=== PATIENT | male | born 1950 | race Caucasian/White ===

== ENCOUNTER 2017-07-18 16:12 | Inpatient (IN) | payer OTHER ==
[~2017-07-18] VITALS: Ht 190.5 cm; Wt 95.3 kg
--- NOTE | ~2017-07-18 | P ---
[facility] [place] [address] PROCEDURE REPORT Name: SHEILA KAPOOR Room #: 210-P [facility] IN M.R.#: [id number] Admission: 07/18/17 Attend Phys: Emanuel Matthews MD Discharge: 07/26/17 Date of : 48 Report #: [id number] THIS REPORT FOR: //name// CC: Emanuel Chavez DATE OF SERVICE: 07/22/2017 PROCEDURE: Upgrade to a biventricular pacemaker. PREOPERATIVE DIAGNOSES: 1. Acute systolic heart failure. 2. Low cardiac output heart failure. 3. Complete heart block. 4. Pacemaker induced cardiomyopathy. HISTORY OF PRESENT ILLNESS: with newly diagnosed systolic heart failure, admitted to the hospital with acute on chronic LV systolic heart failure, which is secondary to chronic right ventricular pacing. He has class 3 heart failure symptoms with a low ejection fraction and has 100% RV pacing, therefore he requires upgrade to a biventricular pacemaker. ANESTHESIA: The patient underwent MAC anesthesia with no anesthesia related complications. PROCEDURE: The patient underwent informed consent where we discussed the details of the procedure including the risks, which include, but not limited to bleeding, infection, vascular damage, cardiac perforation and pneumothorax. He understood these risks and is willing to proceed. As such, the patient was brought to the EP laboratory in a fasting and sedated state and prepped and draped in sterile fashion. The patient received IV antibiotics in the form of vancomycin prior to initiation of the procedure. The patient underwent a venogram, which showed that there could potentially be an occlusion of the left axillary vein. Next, I injected lidocaine at the prior incision site, an incision was made and the chronic pocket was entered. The pacemaker was removed from the pocket. I then attempted to obtain access to the left axillary vein. When I would try to advance my guidewire, it would meet with an occlusion. I therefore switched to a Noy wire and after approximately 10-15 minutes, I was able to find a small channel through the stenosis that I was able to advance the wire through. As such, I then used a 6-Maori dilator and dilated through the stenosis. I then upsized to a 9-Maori short sheath and was able to advance my guidewire down into the right atrium. I then obtained a guide sheath for the coronary sinus and was able to cannulate the coronary sinus quickly and he had a nice posterolateral branch where I was able to deliver a quadripolar lead. This had good pacing and sensing [facility] [address] [place] [address] PROCEDURE REPORT Name: SHEILA KAPOOR Room #: 210-P [facility] IN ..#: [id number] Admission: 07/18/17 Attend Phys: Emanuel Matthews MD Discharge: 07/26/17 Date of : 48 Report #: [id number] thresholds. The lead was sutured to the prepectoral fascia and the new device was connected. The preexisting leads were tested and found to be functioning normally and these were connected to the new [employer] biventricular pacemaker. The pocket was then irrigated with vancomycin solution and then the pocket was closed in 3 layers using 2-0 for the deep layer, 3-0 for the mid layer and 4-0 for the subcuticular layer. Surgical glue was placed to the outer skin layer. The patient awoke neurologically and hemodynamically intact with no complications and no significant bleeding. The explanted pacemaker was a Medtronic model #RVDR01, serial #[id number]. The newly implanted biventricular pacemaker was a [employer] model #ZZ8451, serial #[id number]. The RA lead was a Medtronic model #5076, serial #[id number] with a P-wave of 1.2 millivolts, pacing impedance of 410 ohms and a pacing threshold of 1.25 volts at 0.6 milliseconds. The RV lead was a Medtronic model #5076, serial #[id number]. This lead demonstrated no underlying R waves, pacing impedance of 460 ohms and pacing threshold of 1 volt at 0.5 milliseconds. The LV lead was a [employer] model #1458Q, 86 cm, serial #[id number] with a pacing impedance of 730 ohms and a pacing threshold of 1.25 volts at 0.5 milliseconds. I paced the LV lead from a basal configuration and I optimized the LV offset. The initial QRS duration was very wide at 290 milliseconds and post-biventricular pacing, we had narrowed it down to 190 milliseconds. The device was placed, programmed to the DDDR 60-130 mode. CONCLUSIONS: 1. Successful upgrade to a biventricular pacemaker. 2. Satisfactory atrial, right ventricular and left ventricular pacing thresholds. <ELECTRONICALLY SIGNED> By: Anthony Herr MD 08/02/17 1512 1100 1303 Anthony Herr MD /nt
--- NOTE | ~2017-07-18 | HC ---
[facility] [place] [address] CONSULTATION Name: SHEILA KAPOOR Room #: 210-P [facility] IN M.R.#: [id number] Admission: 07/18/17 Attend Phys: Emanuel Matthews MD Discharge: 07/26/17 Date of : 48 Report #: [id number] THIS REPORT FOR: //name// CC: Emanuel Chavez ELECTROPHYSIOLOGY CONSULTATION REASON FOR CONSULTATION: Evaluate for Bi-V upgrade. HISTORY OF PRESENT ILLNESS: The patient is a 67-year-old with a history of complete heart block, status post pacemaker implantation with a Medtronic device. He paces the ventricle 100% of the time. Recently, he started developing heart failure symptoms with EF in the 20% range. He presented to the Emergency Room with increased fatigue, shortness of breath and confusion. He was seen by Dr. Apple who has asked me to evaluate him for upgrade to a Bi-V. The patient denies any chest pain. He does have exertional dyspnea with minimal to moderate activities. He denies PND or orthopnea. He denies presyncope or syncope. PAST MEDICAL HISTORY: 1. Nonischemic cardiomyopathy. 2. Heart block with chronic RV pacing with Medtronic device. SOCIAL HISTORY: He does not smoke. FAMILY HISTORY: Noncontributory. ALLERGIES: None. MEDICATIONS: Have been reviewed and he is on benazepril 20, carvedilol 3.125, Aldactone, torsemide and other noncardiac meds. REVIEW OF SYSTEMS: A 12-point review of systems was performed and was negative other than what I mentioned above. PHYSICAL EXAMINATION: VITAL SIGNS: Temperature is 36.4, pulse 102, respiration is 22, blood pressure 115/75, sats 100% on room air. GENERAL: He is in no acute distress. HEENT: Oropharynx is clear. NECK: Supple, with no thyromegaly. HEART: Regular rate and rhythm with a displaced PMI. He has a slightly elevated jugular venous pressure. LUNGS: Clear to auscultation bilaterally. ABDOMEN: Soft, nontender, nondistended. EXTREMITIES: Cool with faint pulses. There is no clubbing. There is no edema. [facility] [address] [place] [address] CONSULTATION Name: SHEILA KAPOOR Room #: [address] [place] [address] IN M.R.#: [id number] Admission: 07/18/17 Attend Phys: Emanuel Matthews MD Discharge: 07/26/17 Date of : 48 Report #: [id number] LABORATORY DATA: Creatinine is 1.5. TSH is 4, hemoglobin is 12, white count 6, platelets 259. INR is 1.1. ProBNP is elevated at 7100. CT of the head, no acute process. Chest x-ray shows cardiomegaly, no obvious pulmonary edema or infiltrates. ASSESSMENT AND PLAN: 1. Complete heart block. 2. Medtronic pacemaker. 3. Nonischemic cardiomyopathy. 4. Acute on chronic congestive heart failure with a decreased left ventricular systolic function. 5. Cardiomyopathy, likely secondary to chronic right ventricular pacing. In summary, the patient is a 67-year-old with a nonischemic cardiomyopathy secondary to chronic right ventricular pacing. Given his low ejection fraction and 100% RV pacing, I have recommended that we upgrade the patient to biventricular pacemaker. We discussed the details of the procedure including the risks, which include but not limited to bleeding, infection, vascular damage, cardiac perforation and pneumothorax. He understands these risks and is willing to proceed. We will plan on performing the procedure Saturday. I would make him n.p.o. after midnight on Saturday night. <ELECTRONICALLY SIGNED> By: Anthony Herr MD 07/26/17 1407 1408 1837 Anthony Herr MD /nt
--- NOTE | ~2017-07-18 | EKG ---
[place] [address] [facility] [facility] [place] [address] ELECTROCARDIOGRAM REPORT Name: SHEILA KAPOOR Room #: 210-P ADM IN M.R.#: [id number] Admission: 07/18/17 Attend Phys: Emanuel Mathtews MD Discharge: Date of : 48 Report #: [id number] THIS REPORT FOR: //name// [facility] ED Test Date: 2017-07-18 Test Time: 16:24:50 Pat Name: SHEILA KAPOOR Department: Room: 210 Gender: M Chief Warden: [facility] : 1950 Requested By: Jhon Miller Order Number: [id number] MD: Jose Alejandro Apple Measurements Intervals [place] Rate: 82 P: 65 ME: 29 QRS: -74 QRSD: 239 T: 104 QT: 541 QTc: 632 Interpretive Statements Ventricular-paced complexes No further analysis attempted due to paced rhythm Compared to ECG 11/15/2014 08:05:04 ventricular pacing is now present Electronically Signed On 07-19-2017 13:19:19 CDT by Jose Alejandro Apple [email or web address] <ELECTRONICALLY SIGNED> By: Jose Alejandro Apple MD, [facility] 07/19/17 1319 1624 1624 Jose Alejandro Apple MD, [facility] /EPI
--- NOTE | ~2017-07-18 | HC ---
[facility] [place] [address] CONSULTATION Name: SHEILA KAPOOR Room #: 210-P [facility] IN M.R.#: [id number] Admission: 07/18/17 Attend Phys: Emanuel Matthews MD Discharge: 07/26/17 Date of : 48 Report #: [id number] THIS REPORT FOR: //name// CC: Emanuel Kiser REASON FOR CONSULTATION: Shortness of breath. HISTORY OF PRESENT ILLNESS: The patient is a 67-year-old gentleman with history of hypertension, dyslipidemia and heart block with remote pacemaker implantation (2014). In late 2016, the patient noticed increasing shortness of breath and lower extremity edema. He has gained about 15 pounds over that same length of time. He has a history notable for asymptomatic ventricular ectopy. In 2008, he underwent a battery of tests including echocardiography, which demonstrated normal left ventricular systolic function and a nuclear stress study demonstrating no evidence of ischemia. Remote angiography in 2012 demonstrated essentially normal coronary vasculature and normal systolic function. Recent interrogation of his pacemaker demonstrates a Medtronic dual chamber device, ventricular pacing 96% of the time. His underlying rhythm is complete heart block. Then, subsequently developed a severe cardiomyopathy with an ejection fraction in the 20% range with phem-nu-weycinme mitral insufficiency. He was placed on diuretics, in addition to his usual heart failure protocol, and has had significant improvement in his lower extremity edema and exertional breathlessness, although this has been persistent. According to his family, he has also had intermittent confusion and some cognitive issues over the past couple of months. ALLERGIES: No known drug allergies. MEDICATIONS: Include Elavil 75 mg daily, atorvastatin 20 mg daily, benazepril 20 mg daily, carvedilol 3.125 mg twice daily, Prozac 20 mg 3 times a day, HydroDIURIL 25 mg daily, Namenda 10 mg twice daily, ReVia 50 mg, potassium 20 mEq daily, Seroquel 200 mg daily, Aldactone 25 mg daily, Flomax 0.4 mg daily, torsemide 40 mg daily. PAST MEDICAL HISTORY: Medical records have been reviewed and include history of dyslipidemia, hypertension, sleep apnea for which he uses CPAP, heart block with pacemaker implantation, left total knee replacement. SOCIAL HISTORY: He is a former smoker, works at the [employer]. FAMILY HISTORY: Unremarkable for premature coronary disease. REVIEW OF SYSTEMS: All systems negative except as that noted above. PHYSICAL EXAMINATION: GENERAL: Reveals a pleasant gentleman who is alert and in no distress. [address] [address] CONSULTATION Name: SHEILA KAPOOR Room #: [facility] [place] IN M.R.#: [id number] Admission: 07/18/17 Attend Phys: Emanuel Matthews MD Discharge: 07/26/17 Date of : 48 Report #: [id number] VITAL SIGNS: Blood pressure is 129/90, heart rate of 78 and regular. He is afebrile. HEENT: There are neither xanthelasma, subcutaneous xanthomata, oral mucosal or digital cyanosis or kyphoscoliosis present. CHEST: Clear to auscultation and percussion. CARDIAC: Regular rate and rhythm with normal S1, S2. ABDOMEN: Soft and nontender. EXTREMITIES: Without cyanosis, clubbing or edema. Radial pulses are 2+. NEUROLOGIC: He is alert with a nonfocal exam. LABORATORY DATA: EKG, sinus rhythm with ventricular pacing, left bundle-branch block morphology. Chest x-ray demonstrates cardiomegaly, normal pulmonary vasculature. Sodium 139, potassium 3.5, creatinine 1.5. ProBNP of 7000. Troponin negative. White count 6.6, hemoglobin 12, hematocrit 37, platelet count 259. IMPRESSION: 1. Tymbu-jm-eokybsj systolic heart failure; low output symptoms. 2. Acute kidney injury. 3. Dilated, nonischemic cardiomyopathy, probable pacing-induced cardiomyopathy. 4. Hypertension. 5. Sleep apnea, on CPAP. 6. Dyslipidemia. 7. History of heart block with remote dual chamber pacemaker implantation. RECOMMENDATIONS: 1. Gentle diuresis. 2. Continued use of usual heart failure medicines including carvedilol and TYRON inhibitor. 3. EP consultation for device upgrade to biventricular pacer defibrillator. These issues were discussed with the patient and his family. Thank you for asking me to participate in his care. <ELECTRONICALLY SIGNED> By: Jose Alejandro Apple MD, [facility] 07/29/17 0816 0805 1025 Jose Alejandro Apple MD, FACC /nt
[~2017-07-18 16:12] MED LIST: AMITRIPTYLINE H75 M1 PO; AMITRIPTYLINE100 MG PO; ASPIR 8181 MG PO; ATIVAN0.5 MG PO; BENAZEPRIL HCL20 MG PO; CENTRUM SILVER1 EAC2 PO; CIALIS10 MG PO; CRESTOR20 MG PO; FLUOXETINE HCL20 M1 PO; GEODON 20 MG PO; GEODON20 MG PO; HYDROCODONE-AP1 EAC6 PO; IBUPROFEN200 M1 PO; LIPITOR 20 MG T20 M1 PO; LOTREL 10-20 M1 EACH PO; MELATONIN3 MG PO; NORVASC10 MG PO; REVIA 50 MG TAB50 MG PO; TAMSULOSIN HCL0.4 M1 PO; TYLENOL325 MG PO; ZANTAC 150MG T150 MG PO; [UNRECOGNIZED DRUG - OTHER] PO
[2017-07-18 16:27] VITALS: BP 110/77
[2017-07-18] MEDS ORDERED: FLOMAX0.4 MG PO (16:57)
[2017-07-18] MEDS ORDERED: QUETIAPINE FUM200 M1 PO (16:58)
[2017-07-18] MEDS ORDERED: CARVEDILOL3.125 MG PO (17:01)
[2017-07-18] MEDS ORDERED: ALDACTONE25 MG PO (17:01)
[2017-07-18] MEDS ORDERED: AMBIEN 5 MG TABL5 M1 PO (17:02)
[2017-07-18] MEDS ORDERED: DEMADEX20 MG PO (17:02)
[2017-07-18] MEDS ORDERED: POTASSIUM20 PO (17:03)
[2017-07-18 17:04] LABS: ABSOLUTE NEUTROPHILS 5.2 thou/uL (1.4-8.2); BASOPHILS 0.6 % (0.0-2.0); EOSINOPHILS 2.9 % (0.0-3.0); HEMOGLOBIN 12.1 gm/dL (14.0-18.0); LYMPHOCYTES 11.9 % (24.0-44.0); MCH 29.7 pg (26.0-34.0); MCHC 32.8 g/dL (28.0-37.0); MCV 90.5 fL (80.0-100.0); PLATELET COUNT 259 thou/uL (150-400); POLYS 78.6 % (36.0-66.0); RBC 4.08 mil/uL (4.50-6.00); RDW 14.7 % (10.5-14.5); WBC 6.6 thou/uL (4.0-11.0)
[2017-07-18 17:14] LABS: CALCIUM 10.5 mg/dL (8.5-10.1); CREATININE 1.7 mg/dL (0.7-1.3)
[2017-07-18] MEDS ORDERED: IBUPROFEN 200200 M1 PO ×2 (17:18→17:19)
[2017-07-18 17:21] LABS: APTT 26.4 Seconds (24.5-32.8); INR 1.1; PROTIME 11.7 Seconds (9.3-11.4)
[2017-07-18 17:23] VITALS: BP 110/77
[2017-07-18 17:23] LABS: ALBUMIN 3.6 g/dL (3.4-5.0); TOTAL BILIRUBIN 1.4 mg/dL (<0.1-1.0); TOTAL PROTEIN 6.9 g/dL (6.4-8.2); TROPONIN-I 0.05 ng/mL (<0.06)
[2017-07-18 17:56] VITALS: BP 135/98
[2017-07-18 18:35] VITALS: BP 143/88
[2017-07-18 19:45] VITALS: BP 120/84
[2017-07-19 00:21] VITALS: BP 128/84
[2017-07-19 04:00] LABS: CALCIUM 10.1 mg/dL (8.5-10.1); CREATININE 1.5 mg/dL (0.7-1.3); POTASSIUM 3.5 mmol/L (3.5-5.1)
[2017-07-19 04:45] VITALS: BP 129/97
[2017-07-19 08:10] VITALS: BP 138/93
[2017-07-19 11:48] VITALS: BP 115/75
[2017-07-19 16:01] VITALS: BP 104/75
[2017-07-19 19:48] VITALS: BP 108/75
[2017-07-20 03:54] VITALS: BP 124/72
[2017-07-20 04:34] LABS: CALCIUM 9.9 mg/dL (8.5-10.1); CREATININE 1.9 mg/dL (0.7-1.3); POTASSIUM 4.3 mmol/L (3.5-5.1)
[2017-07-20 04:35] LABS: ABSOLUTE NEUTROPHILS 4.4 thou/uL (1.4-8.2); BASOPHILS 0.6 % (0.0-2.0); EOSINOPHILS 3.4 % (0.0-3.0); HEMATOCRIT 33.4 % (42.0-52.0); HEMOGLOBIN 11.2 gm/dL (14.0-18.0); LYMPHOCYTES 21.5 % (24.0-44.0); MCH 30.2 pg (26.0-34.0); MCHC 33.6 g/dL (28.0-37.0); MCV 89.8 fL (80.0-100.0); MONOCYTES 7.6 % (1.0-8.0); PLATELET COUNT 213 thou/uL (150-400); POLYS 66.9 % (36.0-66.0); RBC 3.72 mil/uL (4.50-6.00); RDW 14.3 % (10.5-14.5); WBC 6.6 thou/uL (4.0-11.0)
[2017-07-20 11:51] VITALS: BP 115/86
[2017-07-20 15:12] VITALS: BP 109/79
[2017-07-20 20:10] VITALS: BP 119/83
[2017-07-21 04:18] VITALS: BP 106/77
[2017-07-21 08:37] VITALS: BP 127/94
[2017-07-21 11:11] LABS: CALCIUM 10.2 mg/dL (8.5-10.1); POTASSIUM 4.4 mmol/L (3.5-5.1)
[2017-07-21 11:45] VITALS: BP 127/94
[2017-07-21 12:55] VITALS: BP 103/63
[2017-07-21 13:04] VITALS: BP 116/87
[2017-07-21 20:03] VITALS: BP 137/92
[2017-07-22 03:21] VITALS: BP 123/84
[2017-07-22 04:32] LABS: CALCIUM 9.9 mg/dL (8.5-10.1); POTASSIUM 4.5 mmol/L (3.5-5.1)
[2017-07-22 06:51] VITALS: BP 107/79
[2017-07-22 19:01] VITALS: BP 141/85
[2017-07-23 03:18] VITALS: BP 113/77
[2017-07-23 06:33] LABS: CALCIUM 9.6 mg/dL (8.5-10.1); CREATININE 1.5 mg/dL (0.7-1.3); POTASSIUM 3.9 mmol/L (3.5-5.1)
[2017-07-23 08:25] VITALS: BP 124/85
[2017-07-23 11:02] VITALS: BP 121/90
[2017-07-23 15:14] VITALS: BP 128/86
[2017-07-23 18:57] VITALS: BP 133/91
[2017-07-24 03:28] VITALS: BP 128/73
[2017-07-24 04:26] LABS: HEMATOCRIT 33.5 % (42.0-52.0); HEMOGLOBIN 11.1 gm/dL (14.0-18.0); MCHC 33.2 g/dL (28.0-37.0); MCV 90.3 fL (80.0-100.0); RBC 3.71 mil/uL (4.50-6.00); RDW 14.8 % (10.5-14.5); WBC 6.1 thou/uL (4.0-11.0)
[2017-07-24 04:43] LABS: CALCIUM 9.5 mg/dL (8.5-10.1); CREATININE 1.5 mg/dL (0.7-1.3); MAGNESIUM 1.8 mg/dL (1.8-2.4)
[2017-07-24 12:12] VITALS: BP 133/94
[2017-07-24 16:04] VITALS: BP 145/99
[2017-07-24 19:50] VITALS: BP 114/79
[2017-07-25 04:45] VITALS: BP 113/75
[2017-07-25 07:24] VITALS: BP 116/78
[2017-07-25 11:20] VITALS: BP 119/84
[2017-07-25 15:43] VITALS: BP 128/92
[2017-07-25 19:50] VITALS: BP 116/74
[2017-07-26 04:50] VITALS: BP 131/88
[2017-07-26 07:14] VITALS: BP 109/75
[2017-07-26] MEDS ORDERED: LISINOPRIL10 MG PO (10:03)
[2017-07-26] MEDS ORDERED: DEMADEX20 MG PO (10:04)
[2017-07-26] MEDS ORDERED: PROTONIX 20 MG20 M1 PO (10:04)
== END 2017-07-26 12:29 | DRG 242 ==
LOC: ER 16:12 → 2N 17:18 → EROBS 17:18 → 2N 18:08
PROVIDERS: Emergency Medicine; Hospitalist; Internal Medicine; Nurse Practitioner
DX: I13.0 Hypertensive heart and chronic kidney disease with heart failure and stage 1 through stage 4 chronic kidney disease, or unspecified chronic kidney disease (principal); I50.23 Acute on chronic systolic (congestive) heart failure; G93.40 Encephalopathy, unspecified; N17.9 Acute kidney failure, unspecified; I44.2 Atrioventricular block, complete; I42.0 Dilated cardiomyopathy; F31.9 Bipolar disorder, unspecified; E78.5 Hyperlipidemia, unspecified; K21.9 Gastro-esophageal reflux disease without esophagitis; N40.0 Benign prostatic hyperplasia without lower urinary tract symptoms; G62.9 Polyneuropathy, unspecified; N18.9 Chronic kidney disease, unspecified; G47.33 Obstructive sleep apnea (adult) (pediatric); E83.52 Hypercalcemia; Z96.652 Presence of left artificial knee joint; Z87.891 Personal history of nicotine dependence; Z86.010 Personal history of colon polyps; Z79.899 Other long term (current) drug therapy; Z28.21 Immunization not carried out because of patient refusal
CPT/HCPCS: 10194; 62110; 62900; 70005

== ENCOUNTER → 2017-11-14 | Outpatient (CLI) | payer OTHER ==
[~2017-11-14] MED LIST changes: +ALDACTONE25 MG PO; +AMBIEN 5 MG TABL5 M1 PO; +CARVEDILOL3.125 MG PO; +DEMADEX20 MG PO; +FLOMAX0.4 MG PO; +IBUPROFEN 200200 M1 PO; +LISINOPRIL10 MG PO; +POTASSIUM20 PO; +PROTONIX 20 MG20 M1 PO; +QUETIAPINE FUM200 M1 PO
== END ==
LOC: RAD 16:13
DX: M47.816 Spondylosis without myelopathy or radiculopathy, lumbar region (principal); I71.4 Abdominal aortic aneurysm, without rupture; I70.0 Atherosclerosis of aorta; I10 Essential (primary) hypertension; E78.5 Hyperlipidemia, unspecified